=== PATIENT | male | born 1955 | race African-American/Black ===

== ENCOUNTER 2017-10-06 03:13 | Observation (INO) | payer SELFPAY ==
[2017-10-06] MEDS ORDERED: Lidocaine 1% w/Epinephrine 1:100K 20 ML VIAL ONE (03:44)
[2017-10-06] MEDS ORDERED: CEFAZOLIN/Water 2 GM/20 ML SYRINGE ONE (03:44)
[2017-10-06] MEDS ORDERED: Adacel (T-DAP) 0.5 ML VIAL ONE (03:44)
[2017-10-06 03:58] LABS: #Eosinphils 0.1 thou/uL (0.0-0.7); #Lymphocytes 1.8 thou/uL (1.20-3.40); #Monocytes 0.3 thou/uL (0.11-0.59); #Neutrophils 2.1 thou/uL (1.40-6.50); %Basophils 1.1 % (0.0-1.0); %Lymphocytes 40.3 % (21.0-51.0); %Monocytes 7.3 % (0.0-10.0); %Neutrophils 48.4 % (42.0-75.0); Hemoglobin 12.7 g/dL (14.0-18.0); Mean Corpuscular HGB CONC 34.2 g/dL (32.0-36.0); Mean Corpuscular Hemoglobin 31.8 pg (27.0-31.0); Mean Corpuscular Volume 92.8 fl (80.0-94.0); Platelet Count 182 thou/uL (130-400); RBC Distribution Width 12.7 % (11.5-14.5); Red Blood Cell (RBC) Count 3.98 mill/uL (4.70-6.10); White Blood Cell (WBC) Count 4.4 thou/uL (4.8-10.8)
[2017-10-06 04:06] LABS: INR-International Normal Ratio 1.1; PTT 28.4 SEC (22.9-36.1); Prothrombin Time 14.1 SEC (12.0-14.7)
[2017-10-06 04:13] LABS: ALT (SGPT) 18 U/L (8-55); AST (SGOT) 25 U/L (5-34); Albumin 3.5 g/dL (3.5-5.0); Alcohol 75 mg/dL (Less than 10); Alkaline Phosphatase 78 U/L (40-150); Anion Gap 12 mmol/L (10-20); BUN (Urea Nitrogen) 9 mg/dL (8.4-25.7); Bilirubin, Total 0.3 mg/dL (0.2-1.2); Calc. Creatinine Clearance 0 mL/min (70-130); Calcium 8.7 mg/dL (7.8-10.44); Carbon Dioxide 21 mmol/L (22-29); Chloride 104 mmol/L (98-107); Estimated GFR-MDRD Greater than 90; Globulin 2.8 g/dL (2.4-3.5); Glucose 92 mg/dL (70-105); Potassium 3.7 mmol/L (3.5-5.1); Protein, Total 6.3 g/dL (6.0-8.3); Sodium 133 mmol/L (136-145)
[2017-10-06] MEDS ORDERED: Dextrose 5% in Water 1,000 ML IV PRN (04:55)
[2017-10-06] MEDS ORDERED: Ondansetron ODT 4 MG TAB PO PRN (04:55)
[2017-10-06] MEDS ORDERED: Ondansetron HCl/PF 4 MG/2 ML Vial IVP PRN (04:55)
[2017-10-06] MEDS ORDERED: Rib Fracture Protocol PO SCH (04:55)
[2017-10-06] MEDS ORDERED: hydrALAZINE 20 MG/ML VIAL SLOW IVP PRN (04:55)
[2017-10-06] MEDS ORDERED: Dextrose 50% Abboject 50 ML SYRINGE SLOW IVP PRN (04:55)
[2017-10-06] MEDS ORDERED: Cyclobenzaprine 10 MG TAB PO PRN (05:15)
[2017-10-06 05:17] LABS: Hemoglobin 12.9 g/dL (14.0-18.0)
[2017-10-06] MEDS: Ibuprofen 800 MG TAB PO SCH ×2 (05:26→15:51)
[2017-10-06] MEDS: Acetaminophen 500 MG TAB PO SCH ×3 (05:27→17:32)
[2017-10-06] MEDS: traMADol HCl 50 MG TAB PO SCH ×3 (05:27→17:32)
[2017-10-06] MEDS: Sodium Chloride 0.9% 1,000 ML IV SCH ×2 (05:30→14:27)
[2017-10-06 05:56] VITALS: BMI 26.4
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
[2017-10-06] MEDS: Gabapentin 300 MG CAP PO SCH ×2 (08:20→15:51)
[2017-10-06] MEDS ORDERED: Famotidine 20 MG TAB PO SCH (09:00)
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
[2017-10-06] MEDS ORDERED: Midazolam HCl 2 mg/2 ml Vial ONE (09:54)
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
[2017-10-06 11:03] LABS: Hemoglobin 12.8 g/dL (14.0-18.0)
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
[2017-10-06] MEDS ORDERED: ISOVUE-370 76%-LOCM 1 ML ONE (14:39)
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
[2017-10-06 16:10] VITALS: BP 130/70; TEMP 97.6
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
== END 2017-10-06 19:04 | disposition home or self-care (01) ==
LOC: ERS 03:13 → SURG A 03:38
PROVIDERS: ADMIT Surgery; ATTEND Surgery
DX: S21.311A Laceration without foreign body of right front wall of thorax with penetration into thoracic cavity, initial encounter (principal); S27.0XXA Traumatic pneumothorax, initial encounter; R04.89 Hemorrhage from other sites in respiratory passages; F10.10 Alcohol abuse, uncomplicated; I10 Essential (primary) hypertension; F17.210 Nicotine dependence, cigarettes, uncomplicated; X99.1XXA Assault by knife, initial encounter
CPT/HCPCS: 36415; 71045; 71270; 80053; 80307; 85025; 85610; 85730; 90471; 90715; 94640; 96365; G0378; G0390; J2001; J2250; J7620

== ENCOUNTER 2017-10-08 11:41 | Emergency (ER) | payer SELFPAY ==
[2017-10-08] MEDS ORDERED: Ketorolac Tromethamine 60 MG/2 ML VIAL ONE (12:38)
--- NOTE | 2017-10-08 13:01 | RAD ---
TWO VIEWS CHEST: 10/08/2017 PROVIDED CLINICAL HISTORY: Hemoptysis. COMPARISON: 10/06/2017 FINDINGS: Cardiac and mediastinal silhouette are unchanged in appearance. The area of parenchymal opacity desc ribed on the prior examination is less conspicuous on the current study. There is no pneumothorax ev ident. Blunting of the posterior costophrenic angle on the right may reflect pleural fluid. IMPRESSION: Blunting of the right costophrenic angle may reflect pleural fluid. Given the recent history of pene trating right thoracic injury, follow-up CT of the chest may be useful for further characterization. POS: [facility]
[2017-10-08 13:27] LABS: #Eosinphils 0.2 thou/uL (0.0-0.7); #Lymphocytes 1.7 thou/uL (1.20-3.40); #Monocytes 0.3 thou/uL (0.11-0.59); #Neutrophils 2.2 thou/uL (1.40-6.50); %Basophils 0.7 % (0.0-1.0); %Eosinophils 3.6 % (0.0-10.0); %Monocytes 7.4 % (0.0-10.0); %Neutrophils 50.3 % (42.0-75.0); Hemoglobin 12.1 g/dL (14.0-18.0); Mean Corpuscular HGB CONC 33.3 g/dL (32.0-36.0); Mean Corpuscular Hemoglobin 31.5 pg (27.0-31.0); Mean Corpuscular Volume 94.7 fl (80.0-94.0); Mean Platelet Volume 7.1 fL (7.4-10.4); Platelet Count 179 thou/uL (130-400); RBC Distribution Width 12.8 % (11.5-14.5); Red Blood Cell (RBC) Count 3.85 mill/uL (4.70-6.10); White Blood Cell (WBC) Count 4.4 thou/uL (4.8-10.8)
== END 2017-10-08 14:15 | disposition home or self-care (01) ==
LOC: ERS 11:41
DX: R04.2 Hemoptysis (principal); R07.89 Other chest pain; F17.210 Nicotine dependence, cigarettes, uncomplicated; Z79.891 Long term (current) use of opiate analgesic
CPT/HCPCS: 36415; 71046; 85025; 96372; J1885

== ENCOUNTER 2017-10-17 09:01 | Outpatient (CLI) | payer SELFPAY ==
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
== END 2017-10-17 09:02 | disposition home or self-care (01) ==
LOC: LABBT 09:01
PROVIDERS: ATTEND Family Medicine
DX: J93.9 Pneumothorax, unspecified (principal); J98.4 Other disorders of lung
CPT/HCPCS: 71046

== ENCOUNTER 2018-06-06 21:49 | Emergency (ER) | payer SELFPAY ==
[2018-06-06] MEDS ORDERED: methylPREDNISolone Sod Succ/PF 125 MG/2 ML VIAL ONE (22:04)
[2018-06-06] MEDS ORDERED: Famotidine/PF 20 mg/2ml Vial ONE (22:04)
[2018-06-06] MEDS ORDERED: EPINEPHrine 1 MG/ML AMP ONE (22:04)
[2018-06-06] MEDS ORDERED: Water For Inject, Bacteriostat 30 ML ONE (22:04)
== END 2018-06-06 23:56 | disposition home or self-care (01) ==
LOC: ERS 21:49
DX: T78.40XA Allergy, unspecified, initial encounter (principal); F17.210 Nicotine dependence, cigarettes, uncomplicated
CPT/HCPCS: 96372; 96374; 96375; J0171; J2930; S0028

== ENCOUNTER 2018-08-15 17:40 | Emergency (ER) | payer SELFPAY | END 2018-08-15 18:10 | disposition home or self-care (01) | LOC: ERS 17:40 | DX: B07.9 Viral wart, unspecified (principal); F17.210 Nicotine dependence, cigarettes, uncomplicated | CPT/HCPCS: 99283 ==

== ENCOUNTER 2020-07-17 23:35 | Emergency (ER) | payer MEDICAID, OTHER ==
[2020-07-18 00:07] LABS: Bacteria/HPF None Seen HPF (None Seen); Bilirubin Negative (Negative); Blood, Urine Negative (Negative); Clarity Clear (Clear); Glucose, Urine (Dipstick) Normal (Negative); Ketone, Urine Negative (Negative); Leukocyte 250 Leu/uL (Negative); Nitrite Negative (Negative); Protein, Urine (Dipstick) Negative (Neg-Trace); RBC/HPF 0-3 HPF (0-3); Specific Gravity, Urine 1.021 (1.002-1.036); Squamous Epithelial None Seen HPF (0-3); Urobilinogen Normal mg/dL (Less than 2); pH, Urine 5.5 (5.0-9.0)
[2020-07-18 00:31] LABS: #Lymphocytes 1.3 thou/uL (1.20-3.40); #Monocytes 0.5 thou/uL (0.11-0.59); #Neutrophils 7.6 thou/uL (1.40-6.50); %Basophils 0.1 % (0.0-1.0); %Eosinophils 0.4 % (0.0-10.0); %Lymphocytes 14.1 % (21.0-51.0); %Monocytes 5.1 % (0.0-10.0); %Neutrophils 80.3 % (42.0-75.0); Hemoglobin 17.2 g/dL (14.0-18.0); Mean Corpuscular HGB CONC 32.9 g/dL (32.0-36.0); Mean Corpuscular Hemoglobin 31.8 pg (27.0-31.0); Mean Corpuscular Volume 96.9 fL (78.0-98.0); Mean Platelet Volume 7.4 fL (7.4-10.4); Platelet Count 228 thou/uL (130-400); White Blood Cell (WBC) Count 9.4 thou/uL (4.8-10.8)
[2020-07-18] MEDS ORDERED: methylPREDNISolone Sod Succ/PF 125 MG/2 ML VIAL ONE (00:37)
[2020-07-18] MEDS ORDERED: diphenhydrAMINE 50 MG/ML VIAL ONE (00:37)
[2020-07-18] MEDS ORDERED: Famotidine/PF 20 mg/2ml Vial ONE (00:37)
[2020-07-18] MEDS ORDERED: Ondansetron PF 4 MG/2 ML Vial ONE (00:42)
[2020-07-18 00:52] LABS: ALT (SGPT) 23 U/L (8-55); AST (SGOT) 25 U/L (5-34); Alkaline Phosphatase 68 U/L (40-110); Anion Gap 14 mmol/L (10-20); BUN (Urea Nitrogen) 17 mg/dL (8.4-25.7); Bilirubin, Total 0.5 mg/dL (0.2-1.2); Calc. Creatinine Clearance 0 mL/min (70-130); Calcium 9.1 mg/dL (7.8-10.44); Carbon Dioxide 25 mmol/L (23-31); Chloride 103 mmol/L (98-107); Globulin 3.3 g/dL (2.4-3.5); Glucose 115 mg/dL (80-115); Lipase 6 U/L (8-78); Potassium 4.2 mmol/L (3.5-5.1); Protein, Total 7.3 g/dL (5.8-8.1); Sodium 138 mmol/L (136-145)
[2020-07-18 01:14] LABS: Amphetamine Not Detected (NotDetected); Barbiturates Screen Not Detected (NotDetected); Benzodiazepine Screen Not Detected (NotDetected); Cocaine Metabolite Screen Not Detected (NotDetected); Medtox Control Line Valid? VALID (VALID); Medtox Reader # READER 4; Methadone Not Detected (NotDetected); Methamphetamine Not Detected (NotDetected); Opiate Screen Not Detected (NotDetected); Oxycodone Screen Not Detected (NotDetected); Phencyclidine (PCP) Not Detected (NotDetected); THC/Cannabinoid Screen Detected (NotDetected); Tricyclic Screen Not Detected (NotDetected)
== END 2020-07-18 02:01 | disposition home or self-care (01) ==
LOC: ERS 23:35
DX: K29.00 Acute gastritis without bleeding (principal); T78.40XA Allergy, unspecified, initial encounter; F17.210 Nicotine dependence, cigarettes, uncomplicated
CPT/HCPCS: 36415; 80053; 80306; 81003; 81015; 83690; 85025; 96374; 96375; J1200; J2405; J2930; S0028

== ENCOUNTER 2020-07-18 11:11 | Outpatient (CLI) | payer OTHER ==
--- NOTE | 2020-07-18 11:29 | RAD ---
EXAM: CHEST TWO VIEWS 07/18/2020 11:26 AM HISTORY: COPD COMPARISON: Prior exam dated October 17, 2017 FINDINGS: Lungs: No acute airspace consolidation. Heart: Normal in size and contour. Pulmonary Vessels: Normal. Costophrenic Angles: Clear. Pneumothorax: None. Osseous Structures: There is scattered degenerative and osteoarthritic change present. Additional Findings: None. IMPRESSION: No significant acute intrathoracic disease.
== END 2020-07-18 11:12 | disposition home or self-care (01) ==
LOC: BICRAD 11:11
PROVIDERS: ATTEND Family Medicine
DX: F17.200 Nicotine dependence, unspecified, uncomplicated (principal)
CPT/HCPCS: 71046

== ENCOUNTER 2022-07-30 07:46 | Emergency (ER) | payer OTHER ==
[2022-07-30 09:03] LABS: #Eosinphils 0.1 thou/uL (0.0-0.7); #Lymphocytes 1.5 thou/uL (1.20-3.40); #Monocytes 0.6 thou/uL (0.11-0.59); #Neutrophils 3.4 thou/uL (1.40-6.50); %Basophils 0.8 % (0.0-1.0); %Eosinophils 1.2 % (0.0-10.0); %Lymphocytes 27.3 % (21.0-51.0); %Monocytes 10.2 % (0.0-10.0); %Neutrophils 60.5 % (42.0-75.0); Hemoglobin 14.2 g/dL (14.0-18.0); Mean Corpuscular HGB CONC 32.8 g/dL (32.0-36.0); Mean Corpuscular Hemoglobin 30.9 pg (27.0-31.0); Mean Corpuscular Volume 94.2 fl (78.0-98.0); Mean Platelet Volume 7.2 fL (7.4-10.4); Platelet Count 196 10x3/uL (130-400); RBC Distribution Width 13.1 % (11.5-14.5); Red Blood Cell (RBC) Count 4.59 mill/uL (4.70-6.10); White Blood Cell (WBC) Count 5.5 10x3/uL (4.8-10.8)
[2022-07-30] MEDS ORDERED: HYDROmorphone 0.5 MG/0.5 ML SYRINGE ONE (09:18)
[2022-07-30] MEDS ORDERED: Ketorolac Tromethamine 30 MG/ML VIAL ONE (09:18)
[2022-07-30 09:24] LABS: ALT (SGPT) 21 U/L (8-55); AST (SGOT) 33 U/L (5-34); Albumin 3.9 g/dL (3.4-4.8); Alkaline Phosphatase 83 U/L (40-110); Anion Gap 13 mmol/L (10-20); BUN (Urea Nitrogen) 18 mg/dL (8.4-25.7); Bilirubin, Total 0.8 mg/dL (0.2-1.2); Calc. Creatinine Clearance 0 mL/min (70-130); Calcium 9.2 mg/dL (7.8-10.44); Carbon Dioxide 23 mmol/L (23-31); Chloride 104 mmol/L (98-107); Estimated GFR 66; Globulin 3.6 g/dL (2.4-3.5); Glucose 83 mg/dL (80-115); Potassium 4.4 mmol/L (3.5-5.1); Protein, Total 7.5 g/dL (5.8-8.1); Sodium 136 mmol/L (136-145)
[2022-07-30 10:20] LABS: Bacteria/HPF None Seen HPF (None Seen); Bilirubin Negative (Negative); Blood, Urine Negative (Negative); Clarity Clear (Clear); Glucose, Urine (Dipstick) Normal (Negative); Ketone, Urine Negative (Negative); Leukocyte 250 Leu/uL (Negative); Nitrite Negative (Negative); Protein, Urine (Dipstick) Negative (Neg-Trace); RBC/HPF 0-3 HPF (0-3); Specific Gravity, Urine 1.019 (1.002-1.036); Squamous Epithelial 0-3 HPF (0-3); Urobilinogen Normal mg/dL (Less than 2); pH, Urine 5.5 (5.0-9.0)
== END 2022-07-30 11:17 | disposition home or self-care (01) ==
LOC: ERS 07:46
DX: M54.41 Lumbago with sciatica, right side (principal); M62.830 Muscle spasm of back; F17.210 Nicotine dependence, cigarettes, uncomplicated
CPT/HCPCS: 36415; 74176; 80053; 81003; 81015; 85025; 87086; 96374; 96375; J1170; J1885

== ENCOUNTER 2024-01-31 08:07 | Emergency (ER) | payer OTHER ==
[2024-01-31] MEDS ORDERED: Fluorescein Opthalmic Strip ONE (09:31)
[2024-01-31] MEDS ORDERED: Proparacaine 0.5% Opth 15 ML BOT ONE (09:31)
[2024-01-31] MEDS ORDERED: Erythromycin Base 0.5% Oint 1 GM TUBE ONE (10:07)
== END 2024-01-31 10:20 | disposition home or self-care (01) ==
LOC: ERS 08:07
DX: H16.001 Unspecified corneal ulcer, right eye (principal); I10 Essential (primary) hypertension; F17.210 Nicotine dependence, cigarettes, uncomplicated; Z55.6 Problems related to health literacy
CPT/HCPCS: 99283